=== PATIENT | female | born 1955 | race Caucasian/White ===

== ENCOUNTER → 2017-06-12 | Outpatient (CLI) | payer OTHER ==
[2017-06-12 17:18] LABS: ABSOLUTE BASOPHILS # (AUTO) 0.1 10^3/uL (0.0-0.2); ABSOLUTE EOSINOPHILS # (AUTO) 0.1 10^3/uL (0.0-0.6); ABSOLUTE LYMPHOCYTES (AUTO) 2.3 10^3/uL (0.5-4.7); ABSOLUTE MONOCYTES (AUTO) 0.5 10^3/uL (0.1-1.4); ABSOLUTE NEUT (AUTO) 5.1 10^3/uL (1.7-8.2); BASOPHILS % (AUTO) 1.1 % (0-2); EOSINOPHILS % (AUTO) 1.5 % (0-6); HEMATOCRIT 37.9 % (36.0-47.0); HGB HCT DIFFERENCE 1.1; LYMPHOCYTES % (AUTO) 28.5 % (13-45); MEAN CORPUSCULAR HEMOGLOBIN 30.9 pg (27.0-33.4); MEAN CORPUSCULAR HGB CONC 34.2 g/dL (32.0-36.0); MEAN CORPUSCULAR VOLUME 90 fl (80-97); MONOCYTES % (AUTO) 6.2 % (3-13); RED BLOOD COUNT 4.19 10^6/uL (3.72-5.28); RED CELL DISTRIBUTION WIDTH 13.6 % (11.5-14.0); SEGMENTED NEUTROPHILS % (AUTO) 62.7 % (42-78); WHITE BLOOD COUNT 8.1 10^3/uL (4.0-10.5)
[2017-06-12 17:35] LABS: ALANINE AMINOTRANSFERASE 26 U/L (9-52); ALBUMIN 4.2 g/dL (3.5-5.0); ALKALINE PHOSPHATASE 87 U/L (38-126); ANION GAP 11 (5-19); ASPARTATE AMINO TRANSFERASE 21 U/L (14-36); BILIRUBIN,DIRECT 0.4 mg/dL (0.0-0.4); BILIRUBIN,TOTAL 0.4 mg/dL (0.2-1.3); BLOOD UREA NITROGEN 33 mg/dL (7-20); CALCIUM 9.7 mg/dL (8.4-10.2); CARBON DIOXIDE 27 mmol/L (22-30); CHLORIDE 105 mmol/L (98-107); CREATININE RESULT 0.82 mg/dL (0.52-1.25); GLUCOSE 88 mg/dL (75-110); POTASSIUM 4.6 mmol/L (3.6-5.0); SODIUM 143.2 mmol/L (137-145); TOTAL PROTEIN 6.9 g/dL (6.3-8.2)
== END ==
LOC: OD 15:54
PROVIDERS: ATTEND Orthopaedic Surgery Sports Medicine
DX: I10 Essential (primary) hypertension (principal); Z11.2 Encounter for screening for other bacterial diseases
CPT/HCPCS: 36415; 80053; 85025; 87070

== ENCOUNTER → 2020-01-25 | Day surgery (SDC) | payer OTHER ==
--- NOTE | 2020-01-25 09:42 | RADIOLOGY REPORT (SQ) ---
EXAM DESCRIPTION: ARTHRO SHOULDER INJECTION; FLUORO/NEEDLE PLACEMENT IMAGES COMPLETED DATE/TIME: 01/25/2020 9:28 am REASON FOR STUDY: M25.512 PAIN IN LEFT SHOULDER M25.512 PAIN IN LEFT SHOULDER COMPARISON: None. FLUOROSCOPY TIME: 0.1 MINUTES 1 images saved to PACS. LIMITATIONS: None. PROCEDURE: Procedure, risks, benefits and alternatives explained to patient who then gave written co nsent. The left posterior shoulder was marked and a time out was called for correct procedure verific ation. Posterior entry site marked using fluoroscopic guidance. Shoulder prepped and draped using s terile technique. Local anesthesia achieved using 1% lidocaine injection. Hypodermic needle introdu raegan into the joint space under direct fluoroscopic visualization. Non-ionic contrast instilled to con firm intra-articular position. Dilute gadolinium solution then injected. Needle removed and entry si te covered with sterile bandage. No immediate complications noted. TECHNIQUE: Digital images acquired during fluoroscopy and stored on PACS. Patient immediately take n to the MR suite for additional imaging. INJECTION LOCATION: Left posterior shoulder CONTRAST TYPE AND AMOUNT: 1 mL Omnipaque 300, 10 mL dilute Dotarem. IMPRESSION: SUCCESSFUL NEEDLE PLACEMENT AND INJECTION FOR LEFT SHOULDER MR ARTHROGRAM USING POSTERIO R APPROACH. COMMENT: NONE Quality ID 145: Final reports for procedures using fluoroscopy that document radiation exposure jacob lela, or exposure time and number of fluorographic images (if radiation exposure indices are not avail able) TECHNICAL DOCUMENTATION: JOB ID: [id number] 2010 [employer]- All Rights Reserved Reading location - IP/workstation name: [email or web address] [id number]
--- NOTE | 2020-01-25 09:42 | RADIOLOGY REPORT (SQ) ---
EXAM DESCRIPTION: ARTHRO SHOULDER INJECTION; FLUORO/NEEDLE PLACEMENT IMAGES COMPLETED DATE/TIME: 01/25/2020 9:28 am REASON FOR STUDY: M25.512 PAIN IN LEFT SHOULDER M25.512 PAIN IN LEFT SHOULDER COMPARISON: None. FLUOROSCOPY TIME: 0.1 MINUTES 1 images saved to PACS. LIMITATIONS: None. PROCEDURE: Procedure, risks, benefits and alternatives explained to patient who then gave written co nsent. The left posterior shoulder was marked and a time out was called for correct procedure verific ation. Posterior entry site marked using fluoroscopic guidance. Shoulder prepped and draped using s terile technique. Local anesthesia achieved using 1% lidocaine injection. Hypodermic needle introdu raegan into the joint space under direct fluoroscopic visualization. Non-ionic contrast instilled to con firm intra-articular position. Dilute gadolinium solution then injected. Needle removed and entry si te covered with sterile bandage. No immediate complications noted. TECHNIQUE: Digital images acquired during fluoroscopy and stored on PACS. Patient immediately take n to the MR suite for additional imaging. INJECTION LOCATION: Left posterior shoulder CONTRAST TYPE AND AMOUNT: 1 mL Omnipaque 300, 10 mL dilute Dotarem. IMPRESSION: SUCCESSFUL NEEDLE PLACEMENT AND INJECTION FOR LEFT SHOULDER MR ARTHROGRAM USING POSTERIO R APPROACH. COMMENT: NONE Quality ID 145: Final reports for procedures using fluoroscopy that document radiation exposure jacob lela, or exposure time and number of fluorographic images (if radiation exposure indices are not avail able) TECHNICAL DOCUMENTATION: JOB ID: [id number] 2010 [employer]- All Rights Reserved Reading location - IP/workstation name: [email or web address] [id number]
--- NOTE | 2020-01-26 17:02 | RADIOLOGY REPORT (SQ) ---
EXAM DESCRIPTION: MRI LT UPPER JOINT WITH IMAGES COMPLETED DATE/TIME: 01/25/2020 10:01 am REASON FOR STUDY: M25.512 PAIN IN LEFT SHOULDER M25.512 PAIN IN LEFT SHOULDER COMPARISON: None. TECHNIQUE: Left shoulder images acquired and stored on PACS. Oblique coronal, oblique sagittal, and axial imaging to include fat sensitive sequences as T1, water sensitive sequences as FST2/STIR, and c ontrast sensitive sequences as FST1. LIMITATIONS: Mild motion artifact on many sequences. FINDINGS: JOINT DISTENTION: Adequate distention for interpretation. BONE MARROW AND CORTEX: Normal. No significant osteophytes. No edema or defects. AC JOINT: Minimal degenerative overgrowth.. GLENOHUMERAL JOINT: No focal chondral lesions. ROTATOR CUFF: Full-thickness full width cuff tear with retraction to the level of the glenohumeral rhiannon int. Atrophy in the supraspinatus and infraspinatus. LABRUM AND BICEPS LABRAL COMPLEX: Superior labrum looks intact. Biceps tendon normal. INFERIOR LABRAL COMPLEX: No suggestion of overt tear. No paralabral cyst. ADJACENT SOFT TISSUES: No masses or nodes. OTHER: No other significant finding. IMPRESSION: 1. Full-thickness full width cuff tear with retraction and atrophy. TECHNICAL DOCUMENTATION: JOB ID: [id number] 2010 [employer]- All Rights Reserved Reading location - IP/workstation name: [email or web address]
== END ==
LOC: RAD 08:40
PROVIDERS: ATTEND Physician Assistant
DX: M25.512 Pain in left shoulder (principal)
CPT/HCPCS: 73222; 77002; 23350; A9576